=== PATIENT | male | born 1965 | race Caucasian/White ===

== ENCOUNTER 2022-11-10 16:49 | Emergency (ER) | payer OTHER ==
[2022-11-10] MEDS ORDERED: Sodium Chloride 0.9% 10 ML Syringe FLUSH PRN ×2 (17:17→17:19)
[2022-11-10] MEDS ORDERED: HYDROmorphone 1 MG/ML Syringe IVPUSH ONE (17:17)
[2022-11-10] MEDS ORDERED: Sodium Chloride 0.9% 1,000 ML IV ONE (17:17)
[2022-11-10] MEDS ORDERED: Ondansetron 4 MG/2 ML SDV IVPUSH ONE (17:17)
[2022-11-10] MEDS ORDERED: Iopamidol 612 MG/ML 100 ML Bottle IVPUSH ONE (17:19)
[2022-11-10 17:30] LABS: BASOPHILS ABSOLUTE AUTO 0.02 K/mm3 (0.01-0.08); BASOPHILS PERCENT AUTO 0.2 % (0.1-1.2); EOSINOPHILS ABSOLUTE AUTO 0.02 K/mm3 (0.04-0.54); EOSINOPHILS PERCENT AUTO 0.2 (0.8-7.0); HEMATOCRIT 43.3 % (40.1-51.0); HEMOGLOBIN 14.4 gm/dl (13.7-17.5); IMMATURE GRAN ABSOLUTE AUTO 0.04 K/mm3 (0.00-0.10); IMMATURE GRAN PERCENT AUTO 0.3 % (<=1.0); LYMPHOCYTES ABSOLUTE AUTO 1.02 K/mm3 (1.32-3.57); LYMPHOCYTES PERCENT AUTO 7.7 % (21.8-53.1); MEAN CORPUSCULAR HEMOGLOBIN 29.9 pg (25.7-32.2); MEAN CORPUSCULAR HGB CONC 33.3 g/dl (32.2-35.5); MEAN CORPUSCULAR VOLUME 89.8 fl (79.0-92.2); MEAN PLATELET VOLUME 8.6 fl (9.4-12.3); MONOCYTES ABSOLUTE AUTO 0.81 K/mm3 (0.30-0.82); MONOCYTES PERCENT AUTO 6.1 % (5.3-12.2); NEUTROPHILS ABSOLUTE AUTO 11.32 K/mm3 (1.78-5.38); NEUTROPHILS PERCENT AUTO 85.5 % (34.0-67.9); PLATELET COUNT,PLT 279 K/mm3 (163-337); RED BLOOD CELL COUNT 4.82 M/mm3 (4.63-6.08); WHITE BLOOD CELL COUNT,WBC 13.23 K/mm3 (4.23-9.07)
[2022-11-10 17:36] LABS: APPEARANCE,URINE CLEAR (Clear); BILIRUBIN,URINE NEGATIVE (Negative); COLOR,URINE YELLOW (Yellow); GLUCOSE,URINE NEGATIVE (Negative); KETONES,URINE TRACE (Negative); LEUKOCYTE ESTERASE,URINE NEGATIVE (Negative); NITRITE,URINE NEGATIVE (Negative); OCCULT BLOOD,URINE 2+ (Negative); PROTEIN,URINE NEGATIVE (Negative); UROBILINOGEN,URINE 0.2 (0.2-1.0)
[2022-11-10 17:43] LABS: BACTERIA,URINE FEW /hpf (FEW); MUCUS,URINE FEW /hpf (FEW); SQUAMOUS EPITHELIAL CELLS,UR 0-5 /hpf (0-5); WBC,URINE 0-5 /hpf (0-5)
[2022-11-10 17:56] LABS: A/G RATIO 0.8 (1-2); ALBUMIN 3.8 g/dl (3.4-5.0); ANION GAP 13.8 (5-15); BILIRUBIN TOTAL 0.7 mg/dL (0.2-1.0); C-REACTIVE PROTEIN 4.4 mg/dL (<1.0); CALCIUM 9.1 mg/dL (8.5-10.1); EST CRCL DRUG DOSING (CG) 71.44 mL/min; MAGNESIUM 1.8 mg/dL (1.8-2.4); POTASSIUM,K 3.8 mEq/L (3.5-5.1); PROTEIN TOTAL,TP 8.5 g/dl (6.4-8.2)
== END 2022-11-10 19:21 | disposition home or self-care (01) ==
LOC: JD.ED 16:49
DX: J18.9 Pneumonia, unspecified organism (principal)
CPT/HCPCS: 36415; 74177; 80053; 81001; 83690; 83735; 85025; 86140; 87086; 96374; 96375; 99284; J1170; J2405; J3490; J7030; Q9967